=== PATIENT | female | born 1955 | race Asian ===

== ENCOUNTER 2025-02-22 14:39 | Outpatient (CLI) | payer BC | END 2025-02-22 14:40 | disposition home or self-care (01) | LOC: BICMAMMO 14:39 | PROVIDERS: ATTEND Family Medicine | DX: Z12.31 Encounter for screening mammogram for malignant neoplasm of breast (principal); Z78.0 Asymptomatic menopausal state; M85.89 Other specified disorders of bone density and structure, multiple sites | CPT/HCPCS: 77063; 77067; 77080 ==